=== PATIENT | female | born 1950 | race Caucasian/White ===

== ENCOUNTER 2018-07-27 06:59 | Day surgery (SDC) | payer MEDICARE, OTHER ==
[2018-07-27] MEDS ORDERED: PROPOFOL 200 MG INJ (07:00)
[2018-07-27] MEDS ORDERED: PROPOFOL 40 ML (09:52)
[2018-07-27] MEDS ORDERED: LIDOCAINE 100 MG SYRINGE (09:52)
== END 2018-07-27 11:23 | disposition home or self-care (01) ==
LOC: GIL 06:59
DX: Z12.11 Encounter for screening for malignant neoplasm of colon (principal); K29.30 Chronic superficial gastritis without bleeding; K64.8 Other hemorrhoids; D12.2 Benign neoplasm of ascending colon; K21.0 Gastro-esophageal reflux disease with esophagitis; I10 Essential (primary) hypertension; E11.9 Type 2 diabetes mellitus without complications; E78.5 Hyperlipidemia, unspecified
CPT/HCPCS: 43239; 82962; 88305; 88312